=== PATIENT | male | born 1975 | race Caucasian/White ===

== ENCOUNTER 2020-05-06 22:54 | Emergency (ER) | payer OTHER ==
[~2020-05-06] VITALS: Ht 175.3 cm; Wt 77.1 kg
[2020-05-06] MEDS ORDERED: CEPH500 PO (23:41)
== END 2020-05-07 00:09 | disposition home or self-care (01) ==
LOC: ER 22:54
DX: B35.3 Tinea pedis (principal); F17.200 Nicotine dependence, unspecified, uncomplicated
CPT/HCPCS: 99283; A9270

== ENCOUNTER → 2023-03-11 | Outpatient (CLI) | payer OTHER ==
[~2023-03-11] MED LIST: CEPH500 PO
[2023-03-11 14:24] LABS: BASOPHILS ABSOLUTE AUTO 0.06 K/mm3 (0.00-0.23); BASOPHILS PERCENT AUTO 1 % (0-2); EOSINOPHILS ABSOLUTE AUTO 0.18 K/mm3 (0.00-0.68); EOSINOPHILS PERCENT AUTO 2 % (0-6); Hematocrit 46.8 % (37.0-53.0); Hemoglobin 16.8 g/dL (13.5-17.5); IMMATURE GRAN ABSOLUTE AUTO 0.04 K/mm3 (0.00-0.10); IMMATURE GRAN PERCENT AUTO 0 % (0-1); LYMPHOCYTES ABSOLUTE AUTO 2.93 K/mm3 (0.84-5.20); LYMPHOCYTES PERCENT AUTO 29 % (21-46); MONOCYTES ABSOLUTE AUTO 0.61 K/mm3 (0.16-1.47); MONOCYTES PERCENT AUTO 6 % (4-13); Mean Corpuscular HGB 31.5 pg (26.0-34.0); Mean Corpuscular HGB Conc 35.9 g/dL (31.5-36.5); Mean Corpuscular Volume 88 fL (80-100); Mean Platelet Volume 9.8 fL (9.1-12.4); NEUTROPHILS ABSOLUTE AUTO 6.29 K/mm3 (1.96-9.15); NEUTROPHILS PERCENT AUTO 62 % (41-73); Platelet Count 356 K/mm3 (150-400); RDW Coefficient Variation 13.7 % (11.7-14.2); RDW Standard Deviation 44.1 fL (35.1-46.3); Red Blood Cell Count 5.34 M/mm3 (4.30-5.90); White Blood Cell Count 10.11 K/mm3 (4.00-11.30)
[2023-03-11 17:08] LABS: Alanine Aminotransfer (ALT/SGP 57 U/L (12-78); Albumin/Globulin Ratio 1.1 (0.8-1.8); Alk Phos 109 U/L (50-136); Anion Gap 6 mmol/L (6-16); Aspartate Aminotrans (AST/SGOT 34 U/L (12-37); Bilirubin, Total 0.7 mg/dL (0.1-1.0); Blood Urea Nitrogen 11 mg/dL (8-24); CHOL/HDL RATIO 3.5; CO2, Blood 25 mmol/L (21-32); Chloride, Blood 109 mmol/L (98-108); Cholesterol 162 mg/dL (50-200); Globulin, Blood 3.7 g/dL (2.2-4.0); Glucose, Blood 96 mg/dL (70-99); HDL Cholesterol 46 mg/dL (>39); LDL/HDL RATIO 1.7; Low Density Lipoprotein Chol 77 mg/dL (0-110); Potassium, Blood 4.2 mmol/L (3.5-5.5); Sodium, Blood 140 mmol/L (136-145); Total Protein, Blood 7.7 g/dL (6.4-8.2); Triglycerides 197 mg/dL (30-160); Very Low Density Lipoprot Chol 39 mg/dL (6-32)
[2023-03-11 17:10] LABS: Bun/Creatinine Ratio 9.1 (12.0-20.0); Creatinine, Blood 1.21 mg/dL (0.60-1.20); Glomerular Filtration Rate 74 (60-)
== END ==
LOC: LAB SHORT 12:45 → LAB 12:45
PROVIDERS: Family Medicine
DX: Z00.00 Encounter for general adult medical examination without abnormal findings (principal); Z13.6 Encounter for screening for cardiovascular disorders
CPT/HCPCS: 80053; 80061; 85025

== ENCOUNTER 2024-10-31 15:56 | Inpatient (IN) | payer OTHER ==
[~2024-10-31] VITALS: Ht 177.8 cm; Wt 75.3 kg
[2024-10-31] MEDS ORDERED: Ketorolac Tromethamine 30mg Vial IV ONE (16:20)
[2024-10-31] MEDS ORDERED: Piperacillin/Tazobactam Sod 3.375 GM in NS 100 ML IV ONE (18:05)
[2024-10-31] MEDS ORDERED: Metoclopramide HCl 5MG / ML 2ML Vial IV ONE (18:05)
[2024-10-31] MEDS ORDERED: Ondansetron HCl 2 MG / ML 2ML Vial IV PRN (18:40)
[2024-10-31] MEDS ORDERED: NS 1,000 ML IV SCH (18:40)
[2024-10-31] MEDS ORDERED: FentaNYL Citrate 50 MCG/ML 2 ML Injection IV PRN ×2 (18:40→20:30)
[2024-10-31] MEDS ORDERED: NS 1,000 ML IV ONE (19:00)
[2024-10-31] MEDS ORDERED: Lactobacil 2-S.Thermo-Bifido 1 1 Cap PO SCH (21:00)
[2024-10-31 21:15] VITALS: BP 138/98
[2024-10-31 22:23] LABS: U Amphetamine Screen Not Detected; U Barbituate Screen Not Detected; U Benzodiazapine Screen Not Detected; U Buprenorphine Screen Not Detected; U Cannabinoids Screen Not Detected; U Cocaine Screen Not Detected; U Methadone Screen Not Detected; U Methamphetamine Screen Not Detected; U Opiates Screen Not Detected; U Oxycodone Screen Not Detected; U Phencyclidine Screen Not Detected
[2024-10-31] MEDS ORDERED: Pantoprazole Sodium 40 MG Injection IV ONE (22:30)
[2024-10-31] MEDS ORDERED: Prochlorperazine Edisylate 10 mg Vial IV PRN (22:30)
[2024-11-01] VITALS (17 sets, daily range): BP systolic 113–140; BP diastolic 77–89
[2024-11-01] MEDS ORDERED: Piperacillin/Tazobactam Sod 4.5 GM in NS 100 ML IV SCH
--- NOTE | 2024-11-01 05:26 | NUR ---
[employer] SUMMARY PT WAS A NEW ADMIT FROM THE ED TONIGHT. ADMITTED FOR ACUTE APPENDICITIS WITH POSSIBLE PERF. PT VOMITED ON THE WAY FROM THE ED AND THEN VOMITED AGAIN A FEW HOURS LATER. PT STATED IT WASN'T NAUSEA BUT MORE ACID REFLUX THAT WOULD CAUSE HIM TO VOMIT. OBTAINED AN ORDER FOR IV PROTONIX AND THAT HAS WORKED WELL AND PT HAS NOT BEEN NAUSEAS OR VOMITED SINCE. ONCE THAT WAS CONTROLLED PT HAS SLEPT WELL THROUGH THE NIGHT. FLUIDS AND ABX INFUSING PER JUN. PT HAS BEEN NPO SINCE ARRIVAL TO UNIT. VSS, REBECCA.
[2024-11-01 06:45] LABS: BASOPHILS ABSOLUTE AUTO 0.03 K/mm3 (0.00-0.23); BASOPHILS PERCENT AUTO 0 % (0-2); EOSINOPHILS ABSOLUTE AUTO 0.12 K/mm3 (0.00-0.68); EOSINOPHILS PERCENT AUTO 1 % (0-6); Hematocrit 40.7 % (37.0-53.0); Hemoglobin 14.6 g/dL (13.5-17.5); IMMATURE GRAN ABSOLUTE AUTO 0.06 K/mm3 (0.00-0.10); IMMATURE GRAN PERCENT AUTO 1 % (0-1); LYMPHOCYTES ABSOLUTE AUTO 0.57 K/mm3 (0.84-5.20); LYMPHOCYTES PERCENT AUTO 5 % (21-46); MONOCYTES ABSOLUTE AUTO 1.26 K/mm3 (0.16-1.47); MONOCYTES PERCENT AUTO 11 % (4-13); Mean Corpuscular HGB Conc 35.9 g/dL (31.5-36.5); Mean Corpuscular Volume 91 fL (80-100); NEUTROPHILS ABSOLUTE AUTO 9.91 K/mm3 (1.96-9.15); NEUTROPHILS PERCENT AUTO 83 % (41-73); NRBC ABSOLUTE 0.00 K/mm3 (0.00-0.02); NRBC Auto 0.0 /100 WBC (0.0-0.2); Platelet Count 329 K/mm3 (150-400); RDW Coefficient Variation 12.7 % (11.7-14.2); RDW Standard Deviation 42.0 fL (35.1-46.3)
[2024-11-01 06:53] LABS: Prothrombin Time Results 11.4 Sec (9.7-11.5)
[2024-11-01 07:03] LABS: Anion Gap 9.0 mmol/L (3-11); Blood Urea Nitrogen 24.0 mg/dL (8-24); CO2, Blood 24.0 mmol/L (21-32); Calcium, Blood 8.8 mg/dL (8.5-10.1); Chloride, Blood 103.0 mmol/L (98-108); Creatinine, Blood 1.36 mg/dL (0.60-1.20); Glucose, Blood 82.0 mg/dL (70-99); Magnesium, Blood 2.2 mg/dL (1.6-2.4); Potassium, Blood 3.4 mmol/L (3.5-5.5); Sodium, Blood 133.0 mmol/L (136-145)
[2024-11-01] MEDS ORDERED: Bupivacaine 0.5% HCl 5 MG/ML 30MLVIAL ONE (08:32)
[2024-11-01] MEDS ORDERED: Midazolam HCl 1MG / ML 2ML Vial ONE (08:42)
[2024-11-01] MEDS ORDERED: Ondansetron HCl 2 MG / ML 2ML Vial ONE (08:42)
[2024-11-01] MEDS ORDERED: Dexamethasone Sod Phos 10 MG/ML 1ML VIAL ONE (08:42)
[2024-11-01] MEDS ORDERED: Rocuronium Bromide 10 MG/ML 5ML Injection IV ONE (08:42)
[2024-11-01] MEDS ORDERED: FentaNYL Citrate 50 MCG/ML 2 ML Injection ONE (08:42)
[2024-11-01] MEDS ORDERED: Sugammadex Sodium 200 MG/2ML SDV (100 MG/ML) ONE ×2 (08:44→10:43)
--- NOTE | 2024-11-01 08:49 | NUR ---
PERSONAL ITEMS GALSSES/RING TAKEN TO PACU. DENTURES TAKEN BACK TO PT'S ROOM 209
[2024-11-01] MEDS ORDERED: Ondansetron HCl 2 MG / ML 2ML Vial IV PRN (09:10)
[2024-11-01] MEDS ORDERED: FentaNYL Citrate 50 MCG/ML 2 ML Injection IV PRN ×3 (09:10→16:05)
[2024-11-01] MEDS ORDERED: HYDROmorphone HCl/Pf 1MG SYR IV PRN ×2 (09:10)
[2024-11-01] MEDS ORDERED: Albuterol 2.5 MG/3 ML VIAL INH PRN (09:10)
[2024-11-01] MEDS ORDERED: ePHEDrine Sulfate 50 MG/ML 1ML Injection IV PRN (09:15)
[2024-11-01] MEDS ORDERED: HYDROmorphone HCl/Pf 1MG SYR ONE (10:31)
--- NOTE | 2024-11-01 11:56 | NUR ---
PT TO ROOM 209 FROM PACU. NG TO LIS PER DR SÁNCHEZ. POST OP VS STARTED AND STABLE. LAP SITES X-4 PRESENT CDI. ABILIO PRESENT HOLDING BULB SUCTION. WILL CONTINUE TO MONITOR.
[2024-11-01] MEDS ORDERED: Benzocaine Oral Spray 0.5ML UD MT PRN (16:20)
--- NOTE | 2024-11-01 17:41 | NUR ---
END OF SHIFT PT RESTING. NG IN PLACE CONNECTED TO LIS. PT REMAINS NPO. IV INFUSING LEFT ARM. FAMILY AT BEDSIDE. WILL CONTINUE TO MONITOR.
[2024-11-02 05:19] VITALS: BP 127/88
[2024-11-02 05:44] LABS: BASOPHILS ABSOLUTE AUTO 0.07 K/mm3 (0.00-0.23); BASOPHILS PERCENT AUTO 1 % (0-2); EOSINOPHILS ABSOLUTE AUTO 0.07 K/mm3 (0.00-0.68); EOSINOPHILS PERCENT AUTO 1 % (0-6); Hematocrit 39.9 % (37.0-53.0); Hemoglobin 14.0 g/dL (13.5-17.5); IMMATURE GRAN ABSOLUTE AUTO 0.10 K/mm3 (0.00-0.10); IMMATURE GRAN PERCENT AUTO 1 % (0-1); LYMPHOCYTES ABSOLUTE AUTO 1.69 K/mm3 (0.84-5.20); LYMPHOCYTES PERCENT AUTO 16 % (21-46); MONOCYTES ABSOLUTE AUTO 2.01 K/mm3 (0.16-1.47); MONOCYTES PERCENT AUTO 19 % (4-13); Mean Corpuscular HGB Conc 35.1 g/dL (31.5-36.5); Mean Corpuscular Volume 93 fL (80-100); NEUTROPHILS ABSOLUTE AUTO 6.42 K/mm3 (1.96-9.15); NEUTROPHILS PERCENT AUTO 62 % (41-73); NRBC ABSOLUTE 0.00 K/mm3 (0.00-0.02); NRBC Auto 0.0 /100 WBC (0.0-0.2); Platelet Count 402 K/mm3 (150-400); RDW Coefficient Variation 13.3 % (11.7-14.2); RDW Standard Deviation 45.3 fL (35.1-46.3)
--- NOTE | 2024-11-02 05:56 | NUR ---
SHIFT SUMMARY POD 1 PERF LAP APPY. NO ACUTE CHANGES OVERNIGHT. VSS. NPO. NG TUBE TO LIS c BROWN OUTPUT. LAP SITE x4 c WOUND GLUE INFORMATICS SPEC C/D/I. ABILIO DRAIN TO LLQ c SEROSANG OUTPUT IN BULB - DRAINAGE AT INSERTION SITE & DIFFICULTY c BULB MAINTAINING COMPRESSION. VOIDING. NO BM. PT REPORTS PAIN TO THROAT/ABD TOLERABLE, MEDICATED PER EMAR. CALL LIGHT IN REACH, BED IN LOWEST POSITION, WILL REPORT TO DAY RN.
[2024-11-02 06:11] LABS: Alanine Aminotransfer (ALT/SGP 48.0 U/L (12-78); Albumin, Blood 2.2 g/dL (3.4-5.0); Albumin/Globulin Ratio 0.5 (0.8-1.8); Anion Gap 8.0 mmol/L (3-11); Aspartate Aminotrans (AST/SGOT 32.0 U/L (12-37); Bilirubin, Total 0.7 mg/dL (0.1-1.0); Blood Urea Nitrogen 24.0 mg/dL (8-24); CO2, Blood 25.0 mmol/L (21-32); Calcium, Blood 8.5 mg/dL (8.5-10.1); Chloride, Blood 109.0 mmol/L (98-108); Creatinine, Blood 1.18 mg/dL (0.60-1.20); Globulin, Blood 4.7 g/dL (2.2-4.0); Glucose, Blood 91.0 mg/dL (70-99); Potassium, Blood 3.7 mmol/L (3.5-5.5); Sodium, Blood 138.0 mmol/L (136-145); Total Protein, Blood 6.9 g/dL (6.4-8.2)
[2024-11-02 07:58] VITALS: BP 121/87
[2024-11-02] MEDS ORDERED: Enoxaparin 40 MG/0.4 ML SYR SC SCH (09:00)
[2024-11-02] MEDS ORDERED: Phenol/Sodium Phenolate Oral Spray 180 ML MM PRN (12:00)
[2024-11-02 14:25] VITALS: BP 128/90
--- NOTE | 2024-11-02 15:59 | NUR ---
SHIFT SUMMARY NO ACUTE CHANGES. NGT REMAINS TO LIS WITH DARK GREEN OUTPUT. PT DENIES PASSING FLATUS YET, BUT REPORTS FEELING "MOVEMENT" IN ABD. IV FENTANYL FOR PAIN CONTROL. IVF + ABX PER ORDERS. SBA FOR CORD MANAGEMENT WHEN OOB AND AMBULATING HALLWAYS. X4 LAP SITES ABD ARE CDI AND ABILIO DRAIN WITH SS DRAINAGE. USING URINAL TO VOID. USES CALL LIGHT APPOPRIATELY.
[2024-11-02 19:24] VITALS: BP 137/93
[2024-11-03 03:14] VITALS: BP 132/97
[2024-11-03 05:39] LABS: Hematocrit 40.9 % (37.0-53.0); Hemoglobin 14.0 g/dL (13.5-17.5); Mean Corpuscular HGB Conc 34.2 g/dL (31.5-36.5); Mean Corpuscular Volume 93 fL (80-100); NRBC ABSOLUTE 0.00 K/mm3 (0.00-0.02); NRBC Auto 0.0 /100 WBC (0.0-0.2); Platelet Count 371 K/mm3 (150-400); RDW Coefficient Variation 13.3 % (11.7-14.2); RDW Standard Deviation 46.0 fL (35.1-46.3)
[2024-11-03 06:24] LABS: BAND PERCENT MAN 3 % (0-8); BASOPHILS ABSOLUTE MAN 0.00 K/mm3 (0.00-0.23); BASOPHILS PERCENT MAN 0 % (0-2); EOSINOPHILS ABSOLUTE MAN 0.33 K/mm3 (0.00-0.68); EOSINOPHILS PERCENT MAN 3 % (0-6); LYMPHOCYTES ABSOLUTE MAN 1.01 K/mm3 (0.84-5.20); LYMPHOCYTES PERCENT MAN 9 % (21-46); MONOCYTES ABSOLUTE MAN 1.12 K/mm3 (0.16-1.47); MONOCYTES PERCENT MAN 10 % (4-13); NEUTROPHILS ABSOLUTE MAN 8.65 K/mm3 (1.96-9.15); PLASMA CELL ABSOLUTE MAN 0.11 K/mm3 (0.00-0.00); PLASMA CELLS PERCENT MAN 1 % (0-0); SEG NEUTROPHILS PERCENT MAN 74 % (41-73)
[2024-11-03 07:13] VITALS: BP 119/85
[2024-11-03 14:10] VITALS: BP 127/90
--- NOTE | 2024-11-03 16:57 | NUR ---
SUMMARY DR PRINCESS MARSH'D NGT THIS AM. PT TOLERATING CLEAR LIQUIDS. SHOWERED. CHANGED DRESSING TO ABILIO DRAIN. PT AMBULATED INDEPENDENTLY IN DIMAS. SAT UP IN RECLINER, NOW BACK TO BED. CALL LIGHT IN REACH.
--- NOTE | 2024-11-03 17:24 | NUR ---
turned over care to coral carlson rn
--- NOTE | 2024-11-03 18:09 | NUR ---
ASSUMED CARE OF PT @0350. NO CHANGES FROM NEGRITO B SUMMARY NOTE OTHER THAN REQUIRMENT OF IV FENTANYL FOR PAIN. AWAITING SHIFT CHANGE REPORT.
[2024-11-03 19:23] VITALS: BP 133/99
[2024-11-03] MEDS ORDERED: Pantoprazole Sodium 40 MG Injection IV ONE (23:10)
--- NOTE | 2024-11-04 04:11 | NUR ---
SHIFT SUMMARY ROSEMARIE WAS ALERT AND FULLY ORIENTED ON ASSESSMENT. PT INDEPENDENT IN ROOM. LAP SITES C.D.I. ABILIO DRAIN OUTPUTTING SCANT SEROSANG. PT REQURING FREQENT PAIN MANAGEMENT. PT WAS NAUSEOUS AT START OF SHIFT WITH ONE EPISODE OF VOMITING, UNRESOLVED WITH ANTIEMETICS. ORDER PLACED FOR PROTONIX. PT FEELING BETTER. NO OTHER ACUTE EVENTS OR CHANGES TO CONDITION.
[2024-11-04 04:51] VITALS: BP 127/95
[2024-11-04 05:41] LABS: Hematocrit 42.1 % (37.0-53.0); Hemoglobin 14.5 g/dL (13.5-17.5); Mean Corpuscular HGB Conc 34.4 g/dL (31.5-36.5); Mean Corpuscular Volume 93 fL (80-100); NRBC ABSOLUTE 0.00 K/mm3 (0.00-0.02); NRBC Auto 0.0 /100 WBC (0.0-0.2); Platelet Count 458 K/mm3 (150-400); RDW Coefficient Variation 13.2 % (11.7-14.2); RDW Standard Deviation 45.1 fL (35.1-46.3)
[2024-11-04 06:31] LABS: Alanine Aminotransfer (ALT/SGP 37.0 U/L (12-78); Albumin, Blood 2.2 g/dL (3.4-5.0); Albumin/Globulin Ratio 0.5 (0.8-1.8); Anion Gap 10.0 mmol/L (3-11); Aspartate Aminotrans (AST/SGOT 25.0 U/L (12-37); Bilirubin, Total 0.8 mg/dL (0.1-1.0); Blood Urea Nitrogen 14.0 mg/dL (8-24); CO2, Blood 25.0 mmol/L (21-32); Calcium, Blood 8.8 mg/dL (8.5-10.1); Chloride, Blood 107.0 mmol/L (98-108); Creatinine, Blood 0.99 mg/dL (0.60-1.20); Globulin, Blood 4.5 g/dL (2.2-4.0); Glucose, Blood 93.0 mg/dL (70-99); Potassium, Blood 3.6 mmol/L (3.5-5.5); Sodium, Blood 138.0 mmol/L (136-145); Total Protein, Blood 6.7 g/dL (6.4-8.2)
[2024-11-04 07:01] LABS: BAND PERCENT MAN 3 % (0-8); BASOPHILS ABSOLUTE MAN 0.00 K/mm3 (0.00-0.23); BASOPHILS PERCENT MAN 0 % (0-2); EOSINOPHILS ABSOLUTE MAN 0.50 K/mm3 (0.00-0.68); EOSINOPHILS PERCENT MAN 4 % (0-6); LYMPHOCYTES ABSOLUTE MAN 2.00 K/mm3 (0.84-5.20); LYMPHOCYTES PERCENT MAN 16 % (21-46); METAMYELOCYTE ABSOLUTE MAN 0.12 K/mm3 (0.00-0.00); METAMYELOCYTE PERCENT MAN 1 % (0-0); MONOCYTES ABSOLUTE MAN 1.12 K/mm3 (0.16-1.47); MONOCYTES PERCENT MAN 9 % (4-13); NEUTROPHILS ABSOLUTE MAN 8.76 K/mm3 (1.96-9.15); SEG NEUTROPHILS PERCENT MAN 67 % (41-73)
[2024-11-04 07:31] VITALS: BP 123/91
[2024-11-04] MEDS ORDERED: Pantoprazole Sodium 40 MG Injection IV ONE (14:45)
[2024-11-04 15:21] VITALS: BP 129/95
--- NOTE | 2024-11-04 16:54 | NUR ---
SHIFT SUMMARY: PATIENT DAY 3 POST-OP APPENDECTOMY c ABILIO DRAIN TO LLQ c A TOTAL OF 20 ML SEROSAGUINEOUS FLUID THIS SHIFT. PATIENT REPORTS NAUSEA, BUT NO VOMITING, MEDICATED c OT DOSE IV PROTONIX AND PRN FOR PAIN TO ABDOMEN PER ORDER c GOOD EFFECT, STILL ON CL DIET, c MOD ORAL INTAKE. PATIENT RECEIVED SCHEDULED MEDS PER EMAR. VITAL SIGNS REVIEWED. PATIENT A/OX4, PLEASANT AND COOPERATIVE c CARE, CALLS APPROPRIATELY AND ABLE TO MAKE NEEDS KNOWN. BED IN LOWEST POSITION. CALL LIGHT IN REACH.
[2024-11-04 20:12] VITALS: BP 120/92
[2024-11-05 04:19] VITALS: BP 128/93
--- NOTE | 2024-11-05 04:51 | NUR ---
SHIFT SUMMARY POD 4-LAP APPY. LAP SITES C/D/I, ABILIO TO LLQ ABD W/MIN SEROUS DRAINAGE-CHANGED ABILIO TEGADERM, C/D/I. AOX4. VSS. PT HAD MED BM AT SHIFT CHANGED LAST NIGHT. REPORTS MILD NAUSEA, BUT STATES ITS MANAGED W/SM SIPS CLEAR SODA. HYPERACTIVE BT. REPORTS 5/10 ABD PAIN, MEDICATED W/5MG PO OXYCODONE & PT ABLE TO REST COMFORTABLY. PT HAD SHOWER LAST NIGHT. CALL LIGHT IN REACH & PT ABLE TO MAKE NEEDS KNOWN.
[2024-11-05 08:30] VITALS: BP 130/87
[2024-11-05] MEDS ORDERED: Pantoprazole Sodium 40 MG Injection IV SCH (09:00)
[2024-11-05 09:36] LABS: BASOPHILS ABSOLUTE AUTO 0.09 K/mm3 (0.00-0.23); BASOPHILS PERCENT AUTO 1 % (0-2); EOSINOPHILS ABSOLUTE AUTO 0.24 K/mm3 (0.00-0.68); EOSINOPHILS PERCENT AUTO 2 % (0-6); Hematocrit 42.2 % (37.0-53.0); Hemoglobin 14.3 g/dL (13.5-17.5); IMMATURE GRAN ABSOLUTE AUTO 0.27 K/mm3 (0.00-0.10); IMMATURE GRAN PERCENT AUTO 2 % (0-1); LYMPHOCYTES ABSOLUTE AUTO 2.03 K/mm3 (0.84-5.20); LYMPHOCYTES PERCENT AUTO 16 % (21-46); MONOCYTES ABSOLUTE AUTO 1.14 K/mm3 (0.16-1.47); MONOCYTES PERCENT AUTO 9 % (4-13); Mean Corpuscular HGB Conc 33.9 g/dL (31.5-36.5); Mean Corpuscular Volume 93 fL (80-100); NEUTROPHILS ABSOLUTE AUTO 8.75 K/mm3 (1.96-9.15); NEUTROPHILS PERCENT AUTO 70 % (41-73); NRBC ABSOLUTE 0.00 K/mm3 (0.00-0.02); NRBC Auto 0.0 /100 WBC (0.0-0.2); Platelet Count 468 K/mm3 (150-400); RDW Coefficient Variation 12.7 % (11.7-14.2); RDW Standard Deviation 43.6 fL (35.1-46.3)
[2024-11-05 09:51] LABS: Anion Gap 10.0 mmol/L (3-11); Blood Urea Nitrogen 16.0 mg/dL (8-24); CO2, Blood 25.0 mmol/L (21-32); Calcium, Blood 8.8 mg/dL (8.5-10.1); Chloride, Blood 107.0 mmol/L (98-108); Creatinine, Blood 1.06 mg/dL (0.60-1.20); Glucose, Blood 71.0 mg/dL (70-99); Potassium, Blood 3.6 mmol/L (3.5-5.5); Sodium, Blood 138.0 mmol/L (136-145)
--- NOTE | 2024-11-05 14:04 | NUR ---
iv dc'd intact
[2024-11-05] MEDS ORDERED: OXAYDO5 M1 PO (14:51)
[2024-11-05] MEDS ORDERED: AMOCLA875 PO (14:52)
--- NOTE | 2024-11-05 15:07 | NUR ---
DC INSTRUCT REVIEWED WITH PT. TELFA REMOVED FROM DRAIN SITE AND DRAIN SPONGES PLACED. PT PROVIDED WITH ADDITIONAL DRAIN SPONGES TO USE THIS WEEK. STATED UNDERSTANDING. PREVIOUSLY DISPENSED HANDWRITTEN RX OXYCODONE AND AUGMENTIN. AMBULATED TO POV WITH PRINTED INSTRUCT.
[2024-11-06] MEDS ORDERED: Folic Acid 1 MG TAB PO SCH (09:00)
== END 2024-11-05 15:09 | disposition home or self-care (01) | DRG 853 ==
LOC: ER 15:56 → SURS 18:38
PROVIDERS: Internal Medicine; Nurse Practitioner Acute Care; Surgery; ADMIT Student in an Organized Health Care Education/Training Program
PROC: 3E03329 Introduction of Other Anti-infective into Peripheral Vein, Percutaneous Approach (ICD-10-PCS; 2024-10-31)
PROC: 0D9670Z Drainage of Stomach with Drainage Device, Via Natural or Artificial Opening (ICD-10-PCS; 2024-11-01)
PROC: 0DTJ4ZZ Resection of Appendix, Percutaneous Endoscopic Approach (ICD-10-PCS; principal; 2024-11-01 08:30)
DX: A41.9 Sepsis, unspecified organism (principal); K35.33 Acute appendicitis with perforation, localized peritonitis, and gangrene, with abscess; N17.9 Acute kidney failure, unspecified; K56.7 Ileus, unspecified; R18.8 Other ascites; F17.210 Nicotine dependence, cigarettes, uncomplicated; F10.10 Alcohol abuse, uncomplicated; R74.01 Elevation of levels of liver transaminase levels; E86.0 Dehydration; Z79.899 Other long term (current) drug therapy; Z98.890 Other specified postprocedural states
CPT/HCPCS: 36415; 74177; 80048; 80053; 83735; 85025; 85610; 88304; 94760; 96374-59; 99285-25; A9270; J0780; J1100; J1171; J1650; J1885; J2250; J2405; J2470; J2543; J2704; J2765; J3010; J3411; J3480; J7030; J7050; J7120; Q9967

== ENCOUNTER → 2024-10-31 | Outpatient (CLI) | payer OTHER ==
[2024-10-31 13:42] LABS: BASOPHILS ABSOLUTE AUTO 0.06 K/mm3 (0.00-0.23); BASOPHILS PERCENT AUTO 0 % (0-2); EOSINOPHILS ABSOLUTE AUTO 0.28 K/mm3 (0.00-0.68); EOSINOPHILS PERCENT AUTO 1 % (0-6); Hematocrit 44.4 % (37.0-53.0); Hemoglobin 15.8 g/dL (13.5-17.5); IMMATURE GRAN ABSOLUTE AUTO 0.16 K/mm3 (0.00-0.10); IMMATURE GRAN PERCENT AUTO 1 % (0-1); LYMPHOCYTES ABSOLUTE AUTO 1.46 K/mm3 (0.84-5.20); LYMPHOCYTES PERCENT AUTO 7 % (21-46); MONOCYTES ABSOLUTE AUTO 1.67 K/mm3 (0.16-1.47); MONOCYTES PERCENT AUTO 8 % (4-13); Mean Corpuscular HGB Conc 35.6 g/dL (31.5-36.5); Mean Corpuscular Volume 89 fL (80-100); NEUTROPHILS ABSOLUTE AUTO 17.09 K/mm3 (1.96-9.15); NEUTROPHILS PERCENT AUTO 82 % (41-73); NRBC ABSOLUTE 0.00 K/mm3 (0.00-0.02); NRBC Auto 0.0 /100 WBC (0.0-0.2); Platelet Count 325 K/mm3 (150-400); RDW Coefficient Variation 12.6 % (11.7-14.2); RDW Standard Deviation 41.0 fL (35.1-46.3)
[2024-10-31 13:51] LABS: Alanine Aminotransfer (ALT/SGP 80.0 U/L (12-78); Albumin, Blood 2.9 g/dL (3.4-5.0); Albumin/Globulin Ratio 0.5 (0.8-1.8); Anion Gap 19.0 mmol/L (6-16); Aspartate Aminotrans (AST/SGOT 48.0 U/L (12-37); Bilirubin, Total 2.0 mg/dL (0.1-1.0); Blood Urea Nitrogen 26.0 mg/dL (8-24); CO2, Blood 24.0 mmol/L (21-32); Calcium, Blood 10.0 mg/dL (8.5-10.1); Chloride, Blood 96.0 mmol/L (98-108); Creatinine, Blood 2.01 mg/dL (0.60-1.20); Globulin, Blood 5.3 g/dL (2.2-4.0); Glucose, Blood 92.0 mg/dL (70-99); Potassium, Blood 3.6 mmol/L (3.5-5.5); Sodium, Blood 135.0 mmol/L (136-145); Total Protein, Blood 8.2 g/dL (6.4-8.2)
== END ==
LOC: LAB SHORT 13:37 → LAB 13:37
PROVIDERS: Family Medicine
DX: R10.9 Unspecified abdominal pain (principal)
CPT/HCPCS: 80053; 85025

== ENCOUNTER 2025-04-09 01:59 | Emergency (ER) | payer OTHER ==
[~2025-04-09] VITALS: Ht 175.3 cm; Wt 77.1 kg
[~2025-04-09 01:59] MED LIST changes: +AMOCLA875 PO; +OXAYDO5 M1 PO
[2025-04-09 03:17] VITALS: BP 146/93
== END 2025-04-09 03:18 ==
LOC: ER 01:59
DX: Z02.89 Encounter for other administrative examinations (principal); S61.412A Laceration without foreign body of left hand, initial encounter; S61.411A Laceration without foreign body of right hand, initial encounter; F17.200 Nicotine dependence, unspecified, uncomplicated; W26.8XXA Contact with other sharp object(s), not elsewhere classified, initial encounter
CPT/HCPCS: 12001; 90471; 90715; 99282-25